=== PATIENT | female | born 1930 | race Caucasian/White ===

== ENCOUNTER 2016-10-31 09:46 | Outpatient (CLI) | payer MEDICARE, OTHER ==
[~2016-10-31] VITALS: Ht 170.2 cm; Wt 50.9 kg
--- NOTE | ~2016-10-31 | HEMODYNAMI ---
PATIENT:ANITA ESQUEDA MEDICAL RECORD: [id number] : 32 LOCATION:DTEE ADMISSION DATE: 10/31/16 Generatedon:10/31/201613:09 Patient name: ANITA ESQUEDA Patient #: [id number] SSN: : 1930 Date of study: 10/31/2016 Page: Of Hemodynamic Procedure Report Patient Data Patient Demographics Procedure consent was obtained First Name: ANITA Gender: Female Last Name: DHEERAJ : 1930 Middle Initial: ZAID Age: 86 year(s) Patient #: [id number] Race: Additional ID: [id number] Contact details [address]: [address] [place] [address] State: [place] City: [place] Zip code: [address] Past Medical History Allergies Allergen Reaction Date Comments Reported Other allergy 10/31/2016 pcn, sULFA, dEMEROL Admission Admission Data Admission Date: 10/31/2016 Admission Time: 9:46 Procedure Procedure Types Cath Procedure Diagnostic Procedure Cardioversion Procedure Description Procedure Date Procedure Date: 10/31/2016 Procedure Start Time: 12:46 Procedure Staff Name Function Richard Sanderson MD Performing Physician Jose D Castillo RT Scrub Alfredo Marie RN Nurse Valerie Gutierrez RT Monitor Markus Buckner CRNA Additional personnel Procedure Medications Medication Administration Route Dosage Refer to Anesthesia Notes for Sedation Medications Oxygen NC 4 l/min Hemodynamics Rest Heart Rate: 71 (bpm) Snapshots Pre Cath Intra NCS Post Cath Vital Signs Time Heart Resp SPO2 NIBP (mmHg) Rhythm Pain Sedation Rate (ipm) (%) Status Level (bpm) 13:04:25 68 12 100 177/91(106) NSR 0 (11) 10(A) , No pain 13:07:58 55 16 100 139/68(113) NSR 0 (11) 10(A) , No pain 13:09:22 54 14 100 145/66(123) NSR 0 (11) 10(A) , No pain Medications Time Medication Route Dose Verified Delivered Reason Notes Effectiven ess by by 13:05:36 Refer to Alfredo Fuentes Anesthesia Frank Marie RN Notes for RN Sedation Medications 13:06:47 Oxygen NC 4 Alfredo Fuentes Per l/min Frank Marie RN physician power and recovery superintendent Log Time Note 12:52:38 Alfredo Marie RN sent for patient. Start room use. 12:52:40 Time tracking: Regular hours 12:52:43 Plan of Care:Hemodynamics will remain stable., Cardiac rhythm will remain stable., Comfort level will be maintained., Respiratory function will remain adequate., Patient/ family verbilizes understanding of procedure., Procedure tolerated without complication., Recovers from procedure without complications.. 12:55:08 Patient received from Pre/Post Procedure Room to [facility] 3 Alert and oriented. Tansferred to table in Supine position. 12:55:10 Warm blankets applied, and ad hugger turned on for patient comfort. 12:55:11 Correct patient and procedure confirmed by team. 12:55:15 Signed procedure consent form obtained from patient. 12:55:16 ECG and BP/O2 sat monitors applied to patient. 12:55:18 Vital chart was started 12:55:23 Vital chart was stopped 13:00:58 Baseline sample Acquired. 13:01:07 Rhythm: atrial fibrillation 13:01:08 Full Disclosure recording started 13:01:25 H&P Date Dictated: 10/28/2016 Within 30 days and on chart., H&P Addendum completed by physician on day of procedure. (MUST COMPLETE FOR ALL OUTPATIENTS). 13:01:26 Pre-procedure instructions explained to patient. 13:01:26 Pre-op teaching completed and patient verbalized understanding. 13:01:27 Family in waiting room. 13:01:29 Patient NPO since Midnight. 13:01:46 Patient allergic to Other allergypcn, sULFA, dEMEROL 13:01:49 Is the patient allergic to Iodine/contrast media? No. 13:01:50 Is patient on blood thinner?Yes 13:01:54 ACC The patient was administered the following blood thiners within the last 24 hours: Eliquis 13:01:55 Patient diabetic? No. 13:01:58 Previous problem with sedation/anesthesia? No ? 13:01:59 Snore? Yes 13:02:00 Sleep apnea? No 13:02:01 Deviated septum? No 13:02:01 Opens mouth fully? Yes 13:02:02 Sticks out tongue? Yes 13:02:04 Airway obstruction? No ? 13:02:06 Dentures? Yes iN 13:02:14 Patient pain scale 0/10 ?. 13:02:18 IV patent on arrival in left hand with 0.9% NaCl at KVO. 13:02:22 Lab results completed and on chart. 13:02:30 Alarms reviewed by Elias Bermudez 13:02:46 Irving Buckner present and monitoring patient for TIVA. 13:02:54 Quick combo pads placed on patients chest and back. 13:03:26 Vital chart was started 13:03:37 Final Timeout: patient, procedure, and site verified with staff and physician. All members of the team are in agreement. 13:03:41 Physical assessment completed. ASA score P 3 - A patient with severe systemic disease as per Richard Sanderson MD. 13:03:48 Sedation plan: TIVA Propofol 13:04:00 Quick Combo opened to sterile field. 13:05:36 Refer to Anesthesia Notes for Sedation Medications was given by Alfredo Marie RN; ; 13:05:59 Defibrillator synced and charged to 200 Joules. 13:06:04 Shock delivered. 13:06:15 Patient cardioverted to sinus bradycardia. 13:06:21 Procedure ended.(Physican Out) 13:06:43 Insertion/operative site no bleeding no hematoma. 13:06:47 Oxygen 4 l/min NC was given by Alfredo Marie RN; Per physician; 13:07:14 Post procedure rhythm: sinus bradycardia 13:07:19 Post procedure instruction explained to patient.Patient verbalizes understanding. 13:07:19 Patient needs reinforcement of post procedure teaching. 13:07:23 See physician's report for complete and final results. 13:07:35 Procedure and supply charges have been captured, reviewed, submitted and are correct. 13:09:17 Report given to Pre/Post Procedure Room. 13:09:20 Patient transfered to Pre/Post Procedure Room with Stretcher. 13:09:36 End room use (Document Last) 13:09:52 Vital chart was stopped Device Usage Item Manufacture Quantity Catalog Hospital Part Current Minimal Lot# / Name Number Charge Number Stock Stock [place]# Code BIOCUREX 1 [id number] Combo Signature Audit [place] Stage Time Signature Unsigned Intra-Procedure 10/31/2016 Valerie 1:09:50 PM Counts RT(R) Signatures Monitor : Valerie Signature : Counts RT Date : Time : [address] [address]
[2016-10-31] MEDS ORDERED: BETAPACE 80 MG80 MG PO (10:32)
[2016-10-31] MEDS ORDERED: ELIQUIS5 MG PO (10:34)
[2016-10-31] MEDS ORDERED: ULTRAM50 MG PO (10:35)
[2016-10-31 10:51] LABS: BASOPHILS 0.5 % (0.0-2.0); EOSINOPHILS 3.6 % (0-7); HEMATOCRIT 41.4 % (36.0-48.0); HEMOGLOBIN 13.7 g/dL (12-16); IMMATURE GRANULOCYTES 0.2 % (0-5); LYMPHOCYTES 29.5 % (15-50); MCH 29.8 pg (26.0-34.0); MCHC 33.1 g/dL (31.0-37.0); MCV 90.2 fL (80.0-100.0); MEAN PLATELET VOLUME 10.1 fL (7.4-10.4); MONOCYTES 9.1 % (2-11); NEUTROPHILS 57.1 % (40-80); PLATELET COUNT 204 10x3/uL (130-400); RBC 4.59 10x6/uL (4.00-5.40); WBC 5.8 10x3/uL (4.8-10.8)
[2016-10-31 10:59] VITALS: BP 174/74; Ht 170.2 cm; Wt 50.9 kg
[2016-10-31 11:01] LABS: ANION GAP 11.7 mmol/L (8-16); CALCIUM 10.2 mg/dL (8.5-10.1); CARBON DIOXIDE 31.1 mmol/L (21.0-32.0); CREATININE - SERUM 0.9 mg/dL (0.6-1.3); POTASSIUM - SERUM 3.8 mmol/L (3.5-5.1)
--- NOTE | 2016-10-31 13:30 | NUR ---
1330 VSS WITH PATIENT ALERT AND ORIENTED SANDWICH AND COFFEE TO BEDSIDE. NO C/O AT THIS TIME WILL MONITOR 1400 NO CHANGE IN ASSESSMENT PATIENT TALKING TO FAMILY
[2016-10-31 13:37] LABS: INR 1.16 (0.85-1.17); PROTIME 14.7 SECONDS (11.6-15.0)
--- NOTE | 2016-10-31 14:14 | NUR ---
PIV REMOVED FROM LEFT ARM WITH DRESSING APPLIED. VSS WITH CHEST PAIN DENIED PATIENT UP TO GET DRESSED FOR DISCHARGE HOME
--- NOTE | 2016-10-31 14:18 | NUR ---
VERBAL AND WRITTEN DISCHARGE GONE OVER WITH PATIENT AND FAMILY LEFT VIA WC TO PARKING FOR TRANSPORT HOME
--- NOTE | 2016-11-10 10:08 | OP ---
PATIENT NAME: ANITA ESQUEDA MEDICAL RECORD: [id number] :[birth year] LOCATION:D.CAT ADMISSION DATE: SURGEON: DELPHINE LUCIO MD DATE OF OPERATION: 10/31/2016 PROCEDURE: DC cardioversion. INDICATION: Atrial fibrillation. PROCEDURE IN DETAIL: IV conscious sedation was performed per anesthesia. Continuous heart rate, O2 saturation, blood pressure monitoring were all undertaken, all of which remains stable. She received 1 shock at 200 joules restoring sinus rhythm. OVERALL IMPRESSION: Successful direct current cardioversion from atrial fibrillation to sinus rhythm. TRANSINT:[id number] Voice Confirmation ID: [id number] DOCUMENT ID: [id number] DELPHINE LUCIO MD at 1008 CC: [id number] DICTATION DATE: 10/31/16 1311 TWIST MAKER: 10/31/16 2214 DEP CLI 10/31/[address] [address]
== END 2016-10-31 14:20 | disposition home or self-care (01) ==
LOC: D.CATH 09:46
PROVIDERS: Internal Medicine Cardiovascular Disease; Internal Medicine Interventional Cardiology
DX: I48.91 Unspecified atrial fibrillation (principal)

== ENCOUNTER → 2018-01-11 13:29 | Outpatient (CLI) | payer MEDICARE, OTHER ==
[2016-10-31 10:59] VITALS: BMI 17.5
[~2018-01-11 13:29] MED LIST: BETAPACE 80 MG80 MG PO; ELIQUIS5 MG PO; ULTRAM50 MG PO
== END | disposition home or self-care (01) ==
LOC: D.MRI 13:29
DX: G45.9 Transient cerebral ischemic attack, unspecified (principal)

== ENCOUNTER → 2018-04-30 11:16 | Outpatient (CLI) | payer MEDICARE, OTHER ==
[2016-10-31 10:59] VITALS: BMI 17.5
== END | disposition home or self-care (01) ==
LOC: D.US 11:16
DX: I71.4 Abdominal aortic aneurysm, without rupture (principal)

== ENCOUNTER → 2018-05-12 12:44 | Outpatient (CLI) | payer MEDICARE, OTHER ==
[2016-10-31 10:59] VITALS: BMI 17.5
== END | disposition home or self-care (01) ==
LOC: D.CT 12:44
DX: I71.4 Abdominal aortic aneurysm, without rupture (principal)

== ENCOUNTER 2019-03-31 19:12 | Inpatient (IN) | payer MEDICARE, OTHER ==
[~2019-03-31] VITALS: Ht 170.2 cm; Wt 60.8 kg
[2019-03-31 20:08] LABS: BASOPHILS 0.3 % (0-2); EOSINOPHILS 3.9 % (0-7); HEMATOCRIT 34.2 % (36.0-48.0); HEMOGLOBIN 11.5 g/dL (12-16); IMMATURE GRANULOCYTES 0.3 % (0-5); LYMPHOCYTES 27.4 % (15-50); MCH 29.7 pg (26.0-34.0); MCHC 33.6 g/dL (31.0-37.0); MCV 88.4 fL (80.0-100.0); MEAN PLATELET VOLUME 10.1 fL (7.4-10.4); MONOCYTES 9.6 % (2-11); NEUTROPHILS 58.5 % (40-80); PLATELET COUNT 176 10x3/uL (130-400); RBC 3.87 10x6/uL (4.00-5.40); RDW 15.1 % (11.5-14.5); WBC 6.7 10x3/uL (4.8-10.8)
[2019-03-31 20:22] LABS: ALBUMIN 3.5 g/dL (3.4-5.0); ALKALINE PHOSPHATASE 99 U/L (46-116); ALT (SGPT) 18 U/L (10-68); BILIRUBIN - TOTAL 0.54 mg/dL (0.2-1.3); CALC OSMOLALITY 276 mosm/kg (275-300); CALCIUM 9.4 mg/dL (8.5-10.1); CHLORIDE - SERUM 102 mmol/L (98-107); CREATININE - SERUM 0.8 mg/dL (0.6-1.3); GLUCOSE 93 mg/dL (74-106); POTASSIUM - SERUM 4.4 mmol/L (3.5-5.1); PROTEIN - SERUM 7.3 g/dL (6.4-8.2); SODIUM 138 mmol/L (136-145); UREA NITROGEN 16 mg/dL (7-18); eGFR NON AFRICAN AMERICAN 72 mL/min (90-120)
[2019-03-31 20:25] LABS: AMYLASE - SERUM 35 U/L (25-115); LIPASE 55 U/L (73-393)
[2019-03-31 20:26] LABS: TROPONIN-I < 0.017 ng/mL (0.000-0.060)
[2019-03-31 21:53] VITALS: BP 169/75
[2019-03-31 22:36] LABS: APPEARANCE CLEAR (CLEAR); BILIRUBIN NEGATIVE (NEGATIVE); COLOR STRAW (YELLOW); GLUCOSE NEGATIVE (NEGATIVE); KETONE NEGATIVE (NEGATIVE); NITRITE NEGATIVE (NEGATIVE); PROTEIN NEGATIVE (NEGATIVE); SPECIFIC GRAVITY 1.015 (1.005-1.020); UROBILINOGEN NORMAL (NORMAL)
[2019-03-31 22:39] LABS: BACTERIA FEW /hpf (NONE SEEN); RED CELLS - URINE 0-5 /hpf (0-5); WHITE CELLS - URINE 0-5 /hpf (0-5)
[2019-03-31 23:10] VITALS: BP 166/76
--- NOTE | 2019-03-31 23:10 | NUR ---
PT TO CT AT THIS TIME.
[2019-03-31 23:54] VITALS: BP 155/73
--- NOTE | 2019-04-01 01:22 | NUR ---
HOUSE SUP INFORMED OF GO-DAVIDTELY, WILL GET MEDICATION TO PT ON FLOOR.
--- NOTE | 2019-04-01 02:40 | NUR ---
TO BED FROM ER VIA WC SOME DIFICULTY AMBULATING TO BED...BED LOW AND LOCKED AND CALL LIGHT PROVIDED CO ABD PAIN AND DX OF CONSTIPATION BUT ABD IS SOFT WITH NO CO PAIN WITH PALPITAtion SKIN IS WARM AND DRY AND LCTA PT HAS TELEMETRY ORDERED BUT WE DO NOT HAVE ENOUGH UNITS WE WILL LEAVE MONITOR OFF DUE TO NON CARDIAC DX COLOSTAMY NOTED AND PT TAKING HER GO LITELY
[2019-04-01 04:23] VITALS: BP 182/74; BMI 21.0
--- NOTE | 2019-04-01 08:08 | NUR ---
ROUNDING DONE WITH PATIENT [facility] PATIENT IS WORKING ON DRINKING SOME GOLETELY. LEFT COLOSTOMY THAT PATIENT IS "BURPING" WITH GAS. STATES TO HAVING "BLOW OUT WITH STOOL" LAST SHIFT. RIGHT FA PIV SEEN WITH SALINE LOCK. ON ROOM AIR. NO SCD'S ON ORDERED, WILL ASK PATIENT TO WEAR AND CHART RESPONSE.
[2019-04-01 09:50] VITALS: BP 182/90
--- NOTE | 2019-04-01 09:58 | NUR ---
IV FLUIDS OF NS STARTED TO INFUSE AT 75 CC/HR TO RIGHT FA ORDERED.
--- NOTE | 2019-04-01 10:54 | NUR ---
BILATERAL SCD'S PLACED ON PATIENT AND EXPLAINED IN USE.
[2019-04-01 12:30] VITALS: BP 159/77
--- NOTE | 2019-04-01 13:31 | NUR ---
RESTING WITH EYES CLOSED, HOB UP AT 45 DEGREES. WILL CPOC.
[2019-04-01 14:39] VITALS: Ht 170.2 cm; Wt 60.8 kg
[2019-04-01 16:34] VITALS: BP 156/67
[2019-04-01 20:00] VITALS: BP 115/51
--- NOTE | 2019-04-01 20:00 | NUR ---
INITIAL ROUNDS AND ASSESSMENT COMPLETED. PT RESTING IN BED . FAMILY X 2 AT BEDSIDE. IVF INFUSING. NONLABORED RESPIRATIONS. CPOC.
[2019-04-01 23:30] VITALS: BP 115/50
--- NOTE | 2019-04-02 00:15 | NUR ---
PT RESTING WITH EYES CLOSED. CALL LIGHT IN REACH. CPOC.
--- NOTE | 2019-04-02 02:38 | NUR ---
NO CHANGE. CPOC.
[2019-04-02 04:30] VITALS: BP 142/74
[2019-04-02 05:17] LABS: BASOPHILS 0.4 % (0-2); HEMATOCRIT 31.7 % (36.0-48.0); HEMOGLOBIN 10.6 g/dL (12-16); IMMATURE GRANULOCYTES 0.2 % (0-5); LYMPHOCYTES 25.5 % (15-50); MCH 29.4 pg (26.0-34.0); MCHC 33.4 g/dL (31.0-37.0); MCV 88.1 fL (80.0-100.0); MEAN PLATELET VOLUME 10.5 fL (7.4-10.4); MONOCYTES 14.9 % (2-11); PLATELET COUNT 179 10x3/uL (130-400); WBC 5.4 10x3/uL (4.8-10.8)
[2019-04-02 05:29] LABS: ALBUMIN 2.9 g/dL (3.4-5.0); ALKALINE PHOSPHATASE 81 U/L (46-116); BILIRUBIN - TOTAL 0.36 mg/dL (0.2-1.3); CALC OSMOLALITY 284 mosm/kg (275-300); CALCIUM 8.9 mg/dL (8.5-10.1); CARBON DIOXIDE 29.8 mmol/L (21.0-32.0); CHLORIDE - SERUM 108 mmol/L (98-107); CREATININE - SERUM 0.7 mg/dL (0.6-1.3); GLUCOSE 95 mg/dL (74-106); POTASSIUM - SERUM 4.4 mmol/L (3.5-5.1); PROTEIN - SERUM 6.2 g/dL (6.4-8.2); SODIUM 142 mmol/L (136-145); UREA NITROGEN 17 mg/dL (7-18); eGFR NON AFRICAN AMERICAN 84 mL/min (90-120)
[2019-04-02 05:35] LABS: ALT (SGPT) 13 U/L (10-68)
--- NOTE | 2019-04-02 07:30 | NUR ---
A/A/OX4. DENIES ANY PAIN OR DISCOMFORT AND VOICES NO REQUESTS. IV PATENT TO RIGHT FOREARM WITHOUT REDNESS OR EDEMA AT SITE. ASSESSMENT COMPLETED AND WILL CONTINUE POC. BED IN LOW LOCKED POSITION AND CALL LIGHT IN REACH.
[2019-04-02 09:02] VITALS: BP 145/71
[2019-04-02] MEDS ORDERED: MIRALAX17 GM PO (10:16)
--- NOTE | 2019-04-02 12:29 | NUR ---
I have reviewed this patient and I concur with the Shift Assessment completed by the Licensed Practical Nurse today this shift.
--- NOTE | 2019-04-02 13:00 | NUR ---
DISCHARGE INSTRUCTIONS REVIEWED WITH PT AND VERBALIZES UNDERSTANDING WITH NO QUESTIONS. IV REMOVED WITH CATH TIP INTACT. LEFT FLOOR VIA W/C WITH ALL PERSONAL BELONGINGS. LEFT FACILITY VIA PRIVATE VEHICLE WITH HER GRANDSON.
--- NOTE | 2019-04-02 13:18 | MORECARE ---
CASE MANAGEMENT DISCHARGE SUMMARY PATIENT: ANITA ESQUEDA UNIT: [id number] ADM DATE: 04/01/19 AGE: 88 : 31 SEX: F ROOM/BED: D.2133 AUTHOR: INA LÓPEZ PHYSICIAN: REFERRING PHYSICIAN: MODESTO LIVINGSTON MD DATE OF SERVICE: 04/02/19 Discharge Plan Patient Name: ANITA ESQUEDA Facility: [facility]:[place] : 1930 Planned Disposition: Anticipated Discharge Date: Discharge Date: Expected LOS: Initial Reviewer: YAZMIN Initial Review Date: 04/01/2019 Generated: 04/02/19 2:18 pm Comments DCP- Discharge Planning Updated by YAZMIN: Mary Lou Angeles on 04/02/19 12:[address] Patient Name: ANITA ESQUEDA Admission Status: ER Accout number: [id number] Admission Date: 04-01-2019 : 1930 Admission Diagnosis:FECAL IMPACTION Attending: MODESTO LIVINGSTON Current LOS: 1 Anticipated DC Date: Planned Disposition: Primary Insurance: MEDICARE A & B Discharge Planning Comments: pt to dc with HH. Pt kurt signed for [facility]. orders faxed. President Educational Institution: Mary Lou Angeles Coverage Notice Reviewer: [id number] Angeles Notice Issued Date-Time: 04/02/2019 10:15 Notice Type: IM Discharge Notice Notice Delivered To: Patient Relationship to Patient: Self Hat Body Sorter Name: Delivery Method: HAND - Hand Delivered Denisa Days: Prior Verbal Notification: Recipient Understood Notice: Yes Recipient Signature: Yes Med Rec Note Co-signed by Attending: Coverage Notice Comment: Reviewer: [id number] Shekhar Angeles Notice Issued Date-Time: 04/02/2019 13:00 Notice Type: Patient Choice Letter Notice Delivered To: Patient Relationship to Patient: Self Hat Body Sorter Name: Delivery Method: HAND - Hand Delivered Denisa Days: Prior Verbal Notification: Recipient Understood Notice: Yes Recipient Signature: Yes Med Rec Note Co-signed by Attending: Coverage Notice Comment: Patient Name: ANITA ESQUEDA Page [id number] at 1318 All edits/amendments must be made on the electronic document DICTATION DATE: 04/02/191317 WATER TREATMENT PLANT SUPERVISOR: DM 04/02/191317 RPT#: [id number] DC DATE: STATUS: ADM IN [facility] [address] [place] [address] END OF REPORT
--- NOTE | 2019-04-04 08:45 | MORECARE ---
CASE MANAGEMENT DISCHARGE SUMMARY PATIENT: ANITA ESQUEDA UNIT: [id number] ADM DATE: 04/01/19 AGE: 88 : 31 SEX: F ROOM/BED: D.2133 AUTHOR: INA LÓPEZ PHYSICIAN: REFERRING PHYSICIAN: MODESTO LIVINGSTON MD DATE OF SERVICE: 04/04/19 Discharge Plan Patient Name: ANITA ESQUEDA Facility: [facility]:[place] : 1930 Planned Disposition: Home with Home Health Anticipated Discharge Date: 04/02/19 Discharge Date: 04/02/2019 Expected LOS: 1 Initial Reviewer: YAZMIN Initial Review Date: 04/01/2019 Generated: 04/04/19 9:44 am Comments DCP- Discharge Planning Updated by YAZMIN: Mary Lou Angeles on 04/02/19 12:[address] Patient Name: ANITA ESQUEDA Admission Status: ER Accout number: [id number] Admission Date: 04-01-2019 : 1930 Admission Diagnosis:FECAL IMPACTION Attending: MODESTO LIVINGSTON Current LOS: 1 Anticipated DC Date: Planned Disposition: Primary Insurance: MEDICARE A & B Discharge Planning Comments: pt to dc with HH. Pt kurt signed for [facility] orders faxed. Resource Teacher: Mary Lou Angeles Coverage Notice Reviewer: [id number] Angeles Notice Issued Date-Time: 04/02/2019 10:15 Notice Type: IM Discharge Notice Notice Delivered To: Patient Relationship to Patient: Self Product Support Analyst Name: Delivery Method: HAND - Hand Delivered Denisa Days: Prior Verbal Notification: Recipient Understood Notice: Yes Recipient Signature: Yes Med Rec Note Co-signed by Attending: Coverage Notice Comment: Reviewer: [email or web address] Shekhar Angeles Notice Issued Date-Time: 04/02/2019 13:00 Notice Type: Patient Choice Letter Notice Delivered To: Patient Relationship to Patient: Self Product Support Analyst Name: Delivery Method: HAND - Hand Delivered Denisa Days: Prior Verbal Notification: Recipient Understood Notice: Yes Recipient Signature: Yes Med Rec Note Co-signed by Attending: Coverage Notice Comment: Last DP export: 04/02/19 12:19 pm Patient Name: ANITA ESQUEDA Page 61101 at 0845 All edits/amendments must be made on the electronic document DICTATION DATE: 04/04/19843 STRAIGHT TOOTH GEAR GENERATOR OPERATOR: DONTAE 04/04/1944 RPT#: [id number] DC DATE:04/02/19 STATUS: DIS IN [facility] [address] [facility] [place] [address] END OF REPORT
== END 2019-04-02 13:47 | disposition home health service (06) | DRG 390 ==
LOC: D.ER 19:12 → D.M2 04-01 01:09
PROVIDERS: Family Medicine; ADMIT Family Medicine; ATTEND Family Medicine
DX: K56.41 Fecal impaction (principal); R14.0 Abdominal distension (gaseous); I48.91 Unspecified atrial fibrillation; J44.9 Chronic obstructive pulmonary disease, unspecified

== ENCOUNTER → 2019-04-12 13:25 | Outpatient (CLI) | payer MEDICARE, OTHER ==
[2019-04-01 14:39] VITALS: BMI 21.0
[~2019-04-12 13:25] MED LIST changes: +MIRALAX17 GM PO
--- NOTE | 2019-04-19 12:04 | EC ---
PATIENT:ANITA ESQUEDA DATE OF SERVICE: 04/12/19 SEX: F MEDICAL RECORD: [id number] DATE OF : [birth year] [facility] AGE OF PATIENT: 88 ADMISSION DATE: 04/12/19 REFERRING PHYSICIAN: INTERPRETING PHYSICIAN: DELPHINE SANDERSON MD ECHOCARDIOGRAM REPORT ECHO CHARGES 4 ECHO COMPLETE Date: 04/12/19 CLINICAL DIAGNOSIS: ATRIAL FIB ECHOCARDIOGRAPHIC MEASUREMENTS (adult normal given) AC root (d.<3.7cm) 3.0 cm LV Septum d (<1.2 cm> 0.70 cm Valve Excursion 1.6 cm LV Septum (systole) 0.90 cm Left Atria (s.<4.0cm> 3.8 cm LVPW d(<1.2cm) 1.070cm RV (d.<2.3cm) 3.2 cm LVPW (sytole) 1.1 cm LV diastole(<5.6CM) 4.8 cm MV E-F(>70mm/sec) cm LV systole 3.7 cm LVOT Diameter 1.5 cm MV exc.(>10mm) 1.5 cm Est.ejection fraction (50-75%) % DOPPLER: LVIT cm/sec A cm/sec E 121 cm/sec LA cm/sec RVSP 44 mmHg LVOT 52 cm/sec AOP1/2T m/s Asc. Ao 113 cm/sec RVOT 46 cm/sec RA cm/sec PA 80 cm/sec AV Gradient Peak 5.14 mmHg AV Mean 3.07 mmHg AV Area 1.5 cm MV Gradient Peak 9.65 mmHg MV Mean 3.11 mmHg MV Area cm COMMENTS: Application Development Director: Caitlin SEAY Timber Watchman: 1 Dr. Sanderson TAPE# PACS Pericardial Effusion Y DATE OF SERVICE: 04/12/2019 PROCEDURE: Echocardiogram. FINDINGS: 1. Left ventricular chamber size is within normal limits. Left ventricular systolic function is normal at 55% to 60%. 2. Left atrium is within normal limits at 3.8 cm. Right atrium and right ventricular chamber sizes are mildly dilated. 3. Valvular structures have normal structure and motion. ECHOCARDIOGRAM REPORT [id number] ANITA ESQUEDA 4. Doppler interrogation reveals mild aortic insufficiency, ixmf-cx-dlqxgndq mitral regurgitation, moderate to severe tricuspid regurgitation, no other valvular insufficiency or stenosis. Pulmonary systolic pressure is estimated at 44 mmHg. 5. Trace pericardial effusion is present. This is not hemodynamically significant. No evidence of left ventricular thrombus. TRANSINT:[id number] Voice Confirmation ID: [id number] DOCUMENT ID: [id number] DELPHINE SANDERSON MD at 1204 CC: [id number] DICTATION DATE: 04/18/19 1135 PHYSICAL EDUCATION SPECIALIST: 04/18/19 1145 DEP CLI 04/12/[address] [address]
== END | disposition home or self-care (01) ==
LOC: D.HCCARDIO 13:25
PROVIDERS: ATTEND Internal Medicine Interventional Cardiology
DX: I48.0 Paroxysmal atrial fibrillation (principal)

== ENCOUNTER → 2019-07-01 12:39 | Outpatient (CLI) | payer MEDICARE, OTHER ==
[2019-04-01 14:39] VITALS: BMI 21.0
[~2019-07-01 12:39] MED LIST changes: +ALBUTEROL SULF8.5 GM INH; +DOXYCYCLINE HY100 M2 PO; +TAMIFLU75 MG PO
== END | disposition home or self-care (01) ==
LOC: D.CT 12:39
PROVIDERS: ATTEND Internal Medicine Cardiovascular Disease
DX: I71.4 Abdominal aortic aneurysm, without rupture (principal)

== ENCOUNTER 2019-08-02 13:06 | Inpatient (IN) | payer MEDICARE, OTHER ==
[~2019-08-02] VITALS: Ht 170.2 cm; Wt 47.2 kg
[~2019-08-02 13:06] MED LIST changes: -ALBUTEROL SULF8.5 GM INH; -DOXYCYCLINE HY100 M2 PO; -TAMIFLU75 MG PO
[2019-08-02] MEDS ORDERED: ALBUTEROL SULF8.5 GM INH (13:39)
[2019-08-02 14:29] LABS: BASOPHILS 0.1 % (0-2); EOSINOPHILS 1.1 % (0-7); HEMATOCRIT 31.4 % (36.0-48.0); HEMOGLOBIN 10.1 g/dL (12-16); IMMATURE GRANULOCYTES 0.3 % (0-5); LYMPHOCYTES 16.3 % (15-50); MCH 28.5 pg (26.0-34.0); MCHC 32.2 g/dL (31.0-37.0); MCV 88.7 fL (80.0-100.0); MEAN PLATELET VOLUME 9.5 fL (7.4-10.4); MONOCYTES 10.7 % (2-11); NEUTROPHILS 71.5 % (40-80); PLATELET COUNT 207 10x3/uL (130-400); RBC 3.54 10x6/uL (4.00-5.40); RDW 15.2 % (11.5-14.5); WBC 10.1 10x3/uL (4.8-10.8)
[2019-08-02 14:41] LABS: CALCIUM 9.5 mg/dL (8.5-10.1); CARBON DIOXIDE 28.4 mmol/L (21.0-32.0); CREATININE - SERUM 0.8 mg/dL (0.6-1.3); POTASSIUM - SERUM 4.4 mmol/L (3.5-5.1)
[2019-08-02 14:47] LABS: BILIRUBIN - TOTAL 0.66 mg/dL (0.2-1.3); PROTEIN - SERUM 7.6 g/dL (6.4-8.2)
[2019-08-02 19:21] LABS: APPEARANCE CLEAR (CLEAR); COLOR YELLOW (YELLOW)
[2019-08-02 19:22] LABS: BILIRUBIN NEGATIVE (NEGATIVE); GLUCOSE NEGATIVE (NEGATIVE); KETONE NEGATIVE (NEGATIVE); NITRITE NEGATIVE (NEGATIVE); PROTEIN NEGATIVE (NEGATIVE); UROBILINOGEN NORMAL (NORMAL)
[2019-08-02 19:23] LABS: BACTERIA FEW /hpf (NEGATIVE); EPITHELIAL CELLS OCC /hpf (0-5); RED CELLS - URINE 0-5 /hpf (0-5); WHITE CELLS - URINE 0-5 /hpf (NEGATIVE)
--- NOTE | 2019-08-02 21:05 | NUR ---
PT ARRIVED TO FLOOR VIA STRECHER WITH FAMILY AT BEDSIDE. PT ALERT WITH SOME CONFUSION. PT VITALS STABLE. PT PLACE ON TELEMETRY RUNNING 69-SR. PT HAS COLOSTOMY BAG TO LEFT SIDE OF ABDOMEN. PT RR EVEN AND UNLABORED AT THIS TIME. NO S/S OF DISTRESS SEEN. PT BED LOW CALL LIGHT WITHIN REACH. FALL PRECAUTIONS IN PLACE. WILL CONTINUE TO MONTITOR.
[2019-08-02] MEDS ORDERED: ELIQUIS5 MG PO (22:16)
[2019-08-02] MEDS ORDERED: BETAPACE 80 MG80 MG PO (22:17)
[2019-08-03] VITALS (7 sets, daily range): BP systolic 117–142; BP diastolic 48–59; Ht 170.2 cm; Wt 47.2 kg
--- NOTE | 2019-08-03 04:12 | NUR ---
PT RESTING IN BED WITH EYES CLOSED RR EVEN AND UNLABORED. NO S/S OF DISTRESS. PT RUNNING 52-SB ON TELEMETRY. BED LOW CALL LIGHT WITHIN REACH. WILL CONTINUE TO MONITOR.
--- NOTE | 2019-08-03 05:42 | NUR ---
PT AWAKE ALERT AND ORIENTED X4. PT RR EVEN AND UNLABORED. NO S/S OF DISTRESS AT THIS TIME. BED LOW CALL LIGHT WITHIN REACH. WILL CONTINUE TO MONITOR.
[2019-08-03 05:47] LABS: BASOPHILS 0 % (0-2); EOSINOPHILS 0 % (0-7); HEMOGLOBIN 9.7 g/dL (12-16); LYMPHOCYTES 14.8 % (15-50); MCH 28.4 pg (26.0-34.0); MCHC 32.3 g/dL (31.0-37.0); MCV 87.7 fL (80.0-100.0); MEAN PLATELET VOLUME 9.8 fL (7.4-10.4); MONOCYTES 1.6 % (2-11); NEUTROPHILS 83.6 % (40-80); PLATELET COUNT 187 10x3/uL (130-400); RBC 3.42 10x6/uL (4.00-5.40); RDW 15.2 % (11.5-14.5)
[2019-08-03 06:08] LABS: ALBUMIN 2.5 g/dL (3.4-5.0); ANION GAP 10.1 mmol/L (8-16); BILIRUBIN - TOTAL 0.49 mg/dL (0.2-1.3); CALCIUM 9.5 mg/dL (8.5-10.1); CARBON DIOXIDE 28.2 mmol/L (21.0-32.0); CREATININE - SERUM 0.9 mg/dL (0.6-1.3); POTASSIUM - SERUM 4.3 mmol/L (3.5-5.1); PROTEIN - SERUM 7.1 g/dL (6.4-8.2)
[2019-08-03 06:43] LABS: WBC 4.9 10x3/uL (4.8-10.8)
--- NOTE | 2019-08-03 19:10 | NUR ---
BEDSIDE REPORT RECEIVED FROM DAY SHIFT, PT CARE ASSUMED. INTRODUCED SELF AND WROTE NAME ON BOARD, PT SITTING UP IN BED WATCHING TV, AAOX4. DENIES ANY NEEDS AT THIS TIME. BED IN LOWEST POSITION, SR X2, CALL LIGHT WITHIN REACH. WILL CONTINUE TO MONITOR.
--- NOTE | 2019-08-03 23:42 | NUR ---
PT C/O OF PIV SITE TO RIGHT FOREARM "LEAKING". PIV RESITED TO RIGHT HAND, 22 GAUGE, ATTEMPT X1, PT TOLERATED WELL. NO S/S OF INFILTRATION NOTED. DENIES ANY OTHER NEEDS AT THIS TIME. BED IN LOWEST POSITION, SR X2, CALL LIGHT WITHIN REACH. WILL CONTINUE TO MONITOR.
--- NOTE | 2019-08-03 23:45 | NUR ---
PIV SITE TO RIGHT FOREARM REMOVED, CATHETER TIP INTACT, PT TOLERATED WELL.
[2019-08-04] VITALS: BP 137/63
[2019-08-04 04:00] VITALS: BP 116/49
[2019-08-04 06:13] LABS: ANION GAP 9.4 mmol/L (8-16); CALCIUM 9.4 mg/dL (8.5-10.1); CARBON DIOXIDE 28.1 mmol/L (21.0-32.0); POTASSIUM - SERUM 4.5 mmol/L (3.5-5.1)
[2019-08-04 06:31] LABS: HEMATOCRIT 29.6 % (36.0-48.0); HEMOGLOBIN 9.9 g/dL (12-16); LYMPHOCYTES 6.9 % (15-50); MCH 28.9 pg (26.0-34.0); MCHC 33.4 g/dL (31.0-37.0); MCV 86.5 fL (80.0-100.0); MEAN PLATELET VOLUME 10.5 fL (7.4-10.4); NEUTROPHILS 89.5 % (40-80); PLATELET COUNT 163 10x3/uL (130-400); RBC 3.42 10x6/uL (4.00-5.40); RDW 14.9 % (11.5-14.5)
[2019-08-04 06:32] LABS: WBC 12.6 10x3/uL (4.8-10.8)
--- NOTE | 2019-08-04 07:26 | NUR ---
REPORT RECEIVED. WILL CONTINUE WITH POC. PT CURRENTLY LYING ON RIGHT SIDE. CALL LIGHT W/I REACH. PT IS AAO AND UP AD LIOR. RR EVEN AND UNLABORED ON RA. L.HAND PIV IS SALINE LOCKED. NO S/S OF DISTRESS NOTED. PT DENIES ANY NEEDS. WILL CTM.
[2019-08-04] MEDS ORDERED: DOXYCYCLINE HY100 M2 PO (08:04)
[2019-08-04] MEDS ORDERED: TAMIFLU75 MG PO (08:04)
--- NOTE | 2019-08-04 09:37 | MORECARE ---
CASE MANAGEMENT DISCHARGE SUMMARY PATIENT: ANITA ESQUEDA UNIT: [id number] ADM DATE: 08/02/19 AGE: 89 : 31 SEX: F ROOM/BED: D.2110 AUTHOR: INA LÓPEZ PHYSICIAN: REFERRING PHYSICIAN: CARMEL MENG MD DATE OF SERVICE: 08/04/19 Discharge Plan Patient Name: ANITA ESQUEDA [facility] [facility] 1930 Planned Disposition: Home with Home Health Anticipated Discharge Date: 08/04/19 Discharge Date: Expected LOS: 2 Initial Reviewer: [email or web address] Initial Review Date: 08/04/2019 Generated: 08/04/19 10:36 am DCPIA - Discharge Planning Initial Assessment Updated by [email or web address]: Ricardo Singer on 08/04/19 9:35 am * Is the patient Alert and Oriented? Yes * How many steps to enter\exit or inside your home? * PCP DR. LIVINGSTON * Pharmacy [facility] * Preadmission Environment Home Alone * ADLs Independent * Equipment Cane Crutch Walker Wheelchair * Other Equipment NOT USING ANY MEDICAL EQUIPMENT NO MEDICAL EQUIPMENT PROVIDER PREFERENCE * List name and contact numbers for known caregivers / representatives who currently or will assist patient after discharge: DANAY BRARKIYA, * Verbal permission to speak to the caregivers and representatives has been obtained from the patient. N/A * Community resources currently utilized None * Please name any agencies selected above. NONE * Additional services required to return to the preadmission environment? No * Can the patient safely return to the preadmission environment? Yes * Has this patient been hospitalized within the prior 30 days at any hospital? No External Providers [facility] Next Contact Date: 08/04/2019 Service Request Date: Service Type: Resolution: Reviewer: Comments: Patient Name: ANITA ESQUEDA Page [phone] at 0937 All edits/amendments must be made on the electronic document DICTATION DATE: 08/04/19935 PLANT TECHNICIAN/CONTROL ROOM OPERATOR: DONTAE 08/04/19935 RPT#: [id number] DC DATE: STATUS: ADM IN [facility] [address] [place] [address] END OF REPORT
--- NOTE | 2019-08-04 10:01 | MORECARE ---
CASE MANAGEMENT DISCHARGE SUMMARY PATIENT: ANITA ESQUEDA UNIT: [id number] ADM DATE: 08/02/19 AGE: 89 : [birth year] SEX: F ROOM/BED: D.2110 AUTHOR: MARIBELDOC PHYSICIAN: REFERRING PHYSICIAN: CARMEL MENG MD DATE OF SERVICE: 08/04/19 Discharge Plan Patient Name: ANITA ESQUEDA Facility: [facility]:[place] : 1930 Planned Disposition: Home with Home Health Anticipated Discharge Date: 08/04/19 Discharge Date: Expected LOS: 2 Initial Reviewer: [email or web address] Initial Review Date: 08/04/2019 Generated: 08/04/19 11:01 am DCPIA - Discharge Planning Initial Assessment Updated by JOSESITO: Ricardo Singer on 08/04/19 9:35 am * Is the patient Alert and Oriented? Yes * How many steps to enter\exit or inside your home? * PCP DR. LIVINGSTON * Pharmacy [facility] * Preadmission Environment Home Alone * ADLs Independent * Equipment Cane Crutch Walker Wheelchair * Other Equipment NOT USING ANY MEDICAL EQUIPMENT NO MEDICAL EQUIPMENT PROVIDER PREFERENCE * List name and contact numbers for known caregivers / representatives who currently or will assist patient after discharge: DANAY ZONIAKIYA, * Verbal permission to speak to the caregivers and representatives has been obtained from the patient. N/A * Community resources currently utilized None * Please name any agencies selected above. NONE * Additional services required to return to the preadmission environment? No * Can the patient safely return to the preadmission environment? Yes * Has this patient been hospitalized within the prior 30 days at any hospital? No External Providers External Provider: [facility] Next Contact Date: 08/04/2019 Service Request Date: Service Type: Resolution: Reviewer: Comments: Coverage Notice Reviewer: [email or web address] - Ricardo Singer Notice Issued Date-Time: 08/04/2019 9:05 Notice Type: Patient Choice Letter Notice Delivered To: Patient Relationship to Patient: Erisa Attorney Name: Delivery Method: HAND - Hand Delivered Denisa Days: Prior Verbal Notification: Recipient Understood Notice: Yes Recipient Signature: Yes Med Rec Note Co-signed by Attending: Coverage Notice Comment: [facility] Last DP export: 08/04/19 8:37 a Patient Name: ANITA ESQUEDA Page [phone] at 1001 All edits/amendments must be made on the electronic document DICTATION DATE: 08/04/19 1001 PILE DRIVER ENGINEER: DONTAE 08/04/19 1001 RPT#: [id number] DC DATE: STATUS: ADM IN [facility] [address] [place] [address] END OF REPORT
--- NOTE | 2019-08-04 10:08 | MORECARE ---
CASE MANAGEMENT DISCHARGE SUMMARY PATIENT: ANITA ESQUEDA UNIT: [id number] ADM DATE: 08/02/19 AGE: 89 : 31 SEX: F ROOM/BED: D.8920 AUTHOR: INA LÓPEZ PHYSICIAN: REFERRING PHYSICIAN: CARMEL MENG MD DATE OF SERVICE: 08/04/19 Discharge Plan Patient Name: ANITA ESQUEDA Facility: [facility]:[place] : 1930 Planned Disposition: Home with Home Health Anticipated Discharge Date: 08/04/19 Discharge Date: Expected LOS: 2 Initial Reviewer: [email or web address] Initial Review Date: 08/04/2019 Generated: 08/04/19 11:08 am Comments DCP- Discharge Planning Updated by [email or web address]: Ricardo Singer on 08/04/19 9:[address] Patient Name: ANITA ESQUEDA Admission Status: ER Accout number: [id number] Admission Date: 08-02-2019 : 1930 Admission Diagnosis: Attending: CARMEL MENG Current LOS: 2 Anticipated DC Date: 08-04-2019 Planned Disposition: Home with Home Health Primary Insurance: MEDICARE A & B PLANNED EXTERNAL PROVIDER: [facility] Discharge Planning Comments: CM RECEIVED HOME HEALTH AND DISCHARGE ORDER, MET WITH PT IN ROOM TO DISCUSS DISCHARGE PLANNING AND NEEDS. PT REPORTS LIVING AT HOME INDEPENDENTLY AND ALONE. PT'S GRANDSON LIVES "TWO HOUSES DOWN" FROM PT. PT HAS CANE, CRUTCHES, WALKER AND WHEELCHAIR WITH NO MEDICAL EQUIPMENT PROVIDER PREFERENCE. PT HAS NO OUTSIDE SERVICES ASSISTING IN THE HOME. CM DISCUSSED AVAILABILITY OF HOME HEALTH, REHAB SERVICES AND MEDICAL EQUIPMENT. PT WILL ACCEPT PHYSICAL THERAPY HOME HEALTH ONLY AND WANTS TO USE [facility] SHE USED THEM IN THE PAST WITH [facility]. CHOICE FOR [facility] SIGNED. PT REPORTS HER GRANDSON WILL PICK HER UP FOR DISCHARGE HOME. CM CALLED [facility], , SPOKE TO JOHNY, REFERRAL PROVIDED, PT PLACED ON SCHEDULE FOR TOMORROW IF POSSIBLE AND WITH ONLY GETTING HOME HEALTH, IT MAY BE THURSDAY FOR ADMIT. CM NOTIFIED PT WHO IS IN AGREEMENT WITH PLAN. CM FAXED REFERRAL AND DISCHARGE INFORMATION TO [facility] AT [phone]. RN HYPERBARIC NURSE NOTIFIED. Appeals Officer: Ricardo Trinway DCPIA - Discharge Planning Initial Assessment Updated by [email or web address]: Ricardo Singer on 08/04/19 9:35 am * Is the patient Alert and Oriented? Yes * How many steps to enter\\exit or inside your home? * PCP DR. LIVINGSTON * [facility] * Preadmission Environment Home Alone * ADLs Independent * Equipment Cane Crutch Walker Wheelchair * Other Equipment NOT USING ANY MEDICAL EQUIPMENT NO MEDICAL EQUIPMENT PROVIDER PREFERENCE * List name and contact numbers for known caregivers / representatives who currently or will assist patient after discharge: KIYA AMBROSE, * Verbal permission to speak to the caregivers and representatives has been obtained from the patient. N/A * Community resources currently utilized None * Please name any agencies selected above. NONE * Additional services required to return to the preadmission environment? No * Can the patient safely return to the preadmission environment? Yes * Has this patient been hospitalized within the prior 30 days at any hospital? No Coverage Notice Reviewer: [id number] - Ricardo Singer Notice Issued Date-Time: 08/04/2019 9:05 Notice Type: Patient Choice Letter Notice Delivered To: Patient Relationship to Patient: Division Leader Name: Delivery Method: HAND - Hand Delivered Denisa Days: Prior Verbal Notification: Recipient Understood Notice: Yes Recipient Signature: Yes Med Rec Note Co-signed by Attending: Coverage Notice Comment: [facility] Last DP export: 08/04/19 9:01 a Patient Name: ANITA ESQUEDA Page [id number] at 1008 All edits/amendments must be made on the electronic document DICTATION DATE: 08/04/19 1008 RESTAURANT SHIFT LEADER: DONTAE 08/04/19 1008 RPT#: [id number] DC DATE: STATUS: ADM IN [facility] [address] [place] [address] END OF REPORT
--- NOTE | 2019-08-04 10:37 | NUR ---
PT DISCHARGED HOME VIA WHEELCHAIR WITH FAMILY. PIV REMOVED WITH CATHETER TIP FULLY INTACT. PT SIGNED PROPER DISCHARGE INSTRUCTIONS AND REMOVED ALL VALUABLES FROM THE ROOM.
--- NOTE | 2019-08-08 | HP ---
PATIENT: ANITA ESQUEDA MEDICAL RECORD: [id number] ACCOUNT: [id number] LOCATION:[address] : [birth year] ADMISSION DATE: 08/02/19 PCP: MODESTO LIVINGSTON MD HISTORY AND PHYSICAL EXAMINATION DATE OF ADMISSION: 08/02/2019 CHIEF COMPLAINT: Fever, body aches, and cough. HISTORY OF PRESENT ILLNESS: This is an 89-year-old female followed by Dr. Livingston, who had acute onset of fever, body aches, cough, and headache that started at 0430 this morning. She was brought to the ER, where a chest x-ray showed right lower lobe airspace disease. Her flu swab was negative for influenza, but she certainly had symptoms. Rest of her lab was pretty good. She is admitted for treatment of pneumonia. PAST MEDICAL AND SURGICAL HISTORY: COPD, atrial fibrillation, hyperlipidemia, and osteoarthritis. PAST SURGICAL HISTORY: She has had a hysterectomy, , appendectomy, tonsillectomy, repair of a rectovaginal fistula and she has had a colostomy and a partial colectomy due to diverticular disease. HOME MEDICATIONS: Sotalol 80 mg twice a day, cyproheptadine 4 mg with meals, Eliquis 2.5 mg twice a day, MiraLax daily p.r.n., Ventolin HFA q.6 hours p.r.n., and aspirin 81 mg a day. ALLERGIES: PENICILLIN, SULFA, AND DEMEROL. HABITS: She states that she still smokes occasionally, but has cut down a good bit. Denies alcohol or drugs. SOCIAL HISTORY: She is . She is a retired [employer] OPERATOR. FAMILY HISTORY: Noncontributory. REVIEW OF SYSTEMS: GENERAL: She states she has lost 40 pounds over the last few weeks. She just does not have an appetite. HEENT: No particular sinus or allergy problems. RESPIRATORY: Has history of COPD, long history of smoking. CARDIAC: History of paroxysmal atrial fibrillation, followed by Dr. Sanderson. GASTROINTESTINAL: She has occasional heartburn. GENITOURINARY: No significant problems there. MUSCULOSKELETAL: Has some arthritis. NEUROLOGIC: No seizures or migraines. PSYCHIATRIC: She has had some depression in the past. PHYSICAL EXAMINATION: VITAL SIGNS: Temperature 97.7, pulse 60, respirations 18, blood pressure 159/58, O2 sat 96%. GENERAL: She is a thin white female, does not appear in acute distress. She has a wet cough. SKIN: Warm and dry. HEENT: Grossly within normal limits. HISTORY AND PHYSICAL [id number] ANITA ESQUEDA NECK: Supple. No JVD or bruit. HEART: Regular rate and rhythm. LUNGS: Fairly clear. ABDOMEN: Soft, nontender. EXTREMITIES: No edema. LABORATORY DATA: Chest x-ray showed right lower lobe airspace disease. Urinalysis is yellow, clear, 1+ leukocyte esterase, few bacteria. CBC with a white count of 10,000, hemoglobin 10.1, hematocrit 31.4. Basic metabolic panel looks good. Liver functions are normal. Influenza A and B were negative by swab. ASSESSMENT: 1. Right lower lobe pneumonia. 2. Fever, body aches, suggesting influenza. PLAN: Admit, IV antibiotics for pneumonia. She is started on Tamiflu from the ER. We will continue that. IV steroids, other tests, and procedures as warranted. TRANSINT:[id number] Voice Confirmation ID: [id number] DOCUMENT ID: [id number] CARMEL MENG MD at 0000 CC: [id number] DICTATION DATE: 08/02/192223 NARCOTICS INVESTIGATOR: 08/02/192304 DIS IN 08/04/19 [address] [place] [address]
== END 2019-08-04 10:38 | disposition home health service (06) | DRG 193 ==
LOC: D.ER 13:06 → D.M2 19:12
PROVIDERS: Family Medicine; ADMIT Family Medicine; ATTEND Family Medicine
DX: J10.00 Influenza due to other identified influenza virus with unspecified type of pneumonia (principal); E43 Unspecified severe protein-calorie malnutrition; Z68.1 Body mass index [BMI] 19.9 or less, adult; R53.1 Weakness; I48.91 Unspecified atrial fibrillation; E78.5 Hyperlipidemia, unspecified